=== PATIENT | female | born 1950 | race American Indian/Alaskan Native ===

== ENCOUNTER 2018-11-21 09:14 | Day surgery (SDC) | payer MEDICARE ==
[2018-11-12 14:15] VITALS: BMI 33.1
[2018-11-21 09:54] VITALS: TEMP 98
[2018-11-21] MEDS ORDERED: Propofol 10 mg/ml Inj (20 ML) ONE (10:19)
[2018-11-21] MEDS ORDERED: Sodium Chloride 0.9% 1,000 ML IV SCH (11:15)
[2018-11-21 11:21] VITALS: RESP 14; O2SAT 100
[2018-11-21 12:32] VITALS: BP 177/68; PULSE 57
== END 2018-11-21 12:58 | disposition home or self-care (01) ==
LOC: ENDO 09:14
PROVIDERS: ATTEND Specialist
DX: Z12.11 Encounter for screening for malignant neoplasm of colon (principal); D12.3 Benign neoplasm of transverse colon; K64.8 Other hemorrhoids; I10 Essential (primary) hypertension
CPT/HCPCS: 45380; 88305; J2704; J7030